=== PATIENT | female | born 1995 | race African-American/Black ===

== ENCOUNTER 2016-12-21 11:58 | Emergency (ER) | payer SELFPAY ==
[~2016-12-21 11:58] MED LIST: VALTREX1000 MG PO; XYLOCAINE JELLY APL
[2016-12-21 12:56] LABS: URINE BILIRUBIN NEGATIVE (NEG); URINE BLOOD NEGATIVE (NEG); URINE GLUCOSE (UA) NEGATIVE (NEG); URINE KETONE NEGATIVE (NEG); URINE LEUKOCYTE ESTERASE POSITIVE (NEG); URINE NITRITE NEGATIVE (NEG); URINE PROTEIN NEGATIVE (NEG)
[2016-12-21 12:58] LABS: URINE APPEARANCE CLOUDY; URINE COLOR YELLOW
[2016-12-21 13:06] LABS: URINE RBC 0 /[HPF] (0-5)
[2016-12-21 13:07] LABS: URINE AMORPHOUS 3+
[2016-12-21 13:09] LABS: BASO % 0.3 % (0-2); EOS % 1.4 % (0-7); EOSINOPHIL ABSOLUTE COUNT 0.1 tho/cmm (0.0-0.7); HCT-HEMATOCRIT 42.9 % (34.0-49.0); HGB-HEMOGLOBIN 14.3 gm/dl (12.0-15.5); IMMATURE GRANULOCYTES ABSOLUTE 0.01 tho/cmm (0-0.03); IMMATURE GRANULOCYTES PERCENT 0.2 % (0-0.3); LYMPH % 38.6 % (20-45); LYMPH ABSOLUTE COUNT 2.5 tho/cmm (0.8-4.5); MCH (MEAN CORPUSCULAR HGB) 26.3 pg (28.0-32.0); MCHC MEAN CORPUSCULAR HGB CONC 33.3 % (32.0-36.0); MCV (MEAN CELL VOLUME) 78.9 fl (82.0-96.0); MEAN PLATELET VOLUME 8.3 cmc (9.4-12.4); MONO % 7.1 % (0-12); MONOCYTE ABSOLUTE COUNT 0.5 tho/cmm (0.0-1.2); NEUTROPHIL ABSOLUTE COUNT 3.4 tho/cmm (1.6-8.0); NEUTROPHIL-AUTOMATED 3.4 tho/cmm (1.6-8.0); NEUTROPHILS % 52.4 % (40-80); PLATELET COUNT 254 tho/cmm (150-450); RED BLOOD COUNT 5.44 mil/cmm (4.00-5.20); WHITE BLOOD COUNT 6.4 tho/cmm (4.0-10.0)
[2016-12-21 13:33] LABS: PREGNANCY-SERUM NEGATIVE (NEGATIVE)
[2016-12-21 13:36] LABS: ALB/GLOB RATIO 0.8 (0.8-2.0); ALBUMIN 3.4 g/dl (3.5-5.0); ALKALINE PHOSPHATASE 70 U/L (33-138); ALT/SGPT 22 U/L (12-78); BILIRUBIN,TOTAL 0.2 mg/dl (0-1.5); BLOOD UREA NITROGEN 9 mg/dl (6-24); CALCIUM 8.4 mg/dl (8.5-10.5); CARBON DIOXIDE-VENOUS 24 mmol/L (22-32); CHLORIDE 108 mmol/l (96-110); CREATININE 0.84 mg/dl (0.50-1.10); GLUCOSE 76 mg/dL (70-110); LIPASE 92 U/L (73-393); SODIUM 139 mmol/L (135-145); eGFR VALUE FOR BLACK >90 mL/Min
[2016-12-21 13:41] LABS: ANION GAP 11 mmol/L (0-20); AST/SGOT 24 U/L (10-40); C-REACTIVE PROTEIN <0.3 mg/dl (0-0.9); POTASSIUM 4.1 mmol/L (3.7-5.1)
[2016-12-21] MEDS ORDERED: CEPHALEXIN500 M1 PO (14:55)
== END 2016-12-21 14:59 ==
LOC: EDMED 11:58
PROVIDERS: Emergency Medicine
DX: R10.13 Epigastric pain (principal); L03.032 Cellulitis of left toe